=== PATIENT | male | born 1995 | race Hispanic/Latino ===

== ENCOUNTER 2024-11-11 00:44 | Emergency (ER) | payer OTHER ==
[~2024-11-11] VITALS: Ht 172.7 cm; Wt 87.1 kg
[2024-11-11 00:53] VITALS: TEMP 98.2
[2024-11-11] MEDS ORDERED: AUGMENTIN 500-1 EACH PO (01:21)
[2024-11-11 01:30] VITALS: PULSE 79; RESP 20; O2SAT 100
== END 2024-11-11 01:35 | disposition home or self-care (01) ==
LOC: ER 00:48
DX: L72.3 Sebaceous cyst (principal)
CPT/HCPCS: 99282